=== PATIENT | female | born 1985 | race Caucasian/White ===

== ENCOUNTER 2017-10-03 18:00 | Observation (INO) | payer OTHER ==
[~2017-10-03] VITALS: Ht 160 cm; Wt 62.6 kg
[2017-10-03] MEDS ORDERED: PREN-380 PO (18:23)
[2017-10-03] MEDS ORDERED: ONDANSETRON 4 MG/2 ML VIAL IVP PRN (18:25)
[2017-10-03] MEDS ORDERED: LACTATED RINGERS 1,000 ML IV SCH (18:25)
[2017-10-03 19:07] VITALS: BP 103/57
[2017-10-03 19:30] LABS: HEMOGLOBIN 10.9 g/dL (12.0-16.0); MEAN CORPUSCULAR HEMOGLOBIN 31 pg (27-31); MEAN CORPUSCULAR HGB CONC 33 g/dL (33-37); MEAN CORPUSCULAR VOLUME 93.4 fL (80-94); PLATELET COUNT (AUTO) 251 K/uL (140-450); RED BLOOD CELL COUNT(AUTO) 3.53 MIL/uL (4.20-5.40); RED CELL DISTRIBUTION WIDTH 13.3 % (11.6-13.7); WHITE BLOOD COUNT (AUTO) 21.9 K/uL (4.8-10.8)
[2017-10-03 19:42] LABS: ANION GAP 13.9 (8-16); CARBON DIOXIDE 23.3 mmol/L (21-32); CREATININE 0.7 mg/dL (0.6-1.3); POTASSIUM 3.2 mmol/L (3.5-5.1)
[2017-10-03 19:48] LABS: ALBUMIN 2.8 g/dL (3.4-5.0); TOTAL BILIRUBIN 0.7 mg/dL (0.0-1.0)
[2017-10-03 19:56] LABS: LYMPHOCYTES % (MANUAL) 3 % (20-46); MONOCYTES % (MANUAL) 1 % (5-12)
[2017-10-03] MEDS ORDERED: MORPHINE SULFATE 5 MG/ML VIAL IVP PRN (20:25)
[2017-10-03] MEDS ORDERED: KCL 20 MEQ/WATER INJ PREMIX 100 ML IV ONE (20:25)
[2017-10-03] MEDS ORDERED: POTASSIUM CHL 20 MEQ/ 1/2 NS 1,000 ML IV SCH (20:40)
[2017-10-03 21:37] LABS: APPEARANCE,URINE CLEAR (CLEAR); BILIRUBIN,URINE NEGATIVE (NEGATIVE); BLOOD, URINE 1+ (NEGATIVE); LEUKOCYTE ESTERASE ,URINE NEGATIVE (NEGATIVE); NITRITE, URINE NEGATIVE (NEGATIVE); PH,URINE 6.5 (5.0-9.0); UGLUCOSE NEGATIVE (NEGATIVE)
[2017-10-03 21:39] LABS: COLOR,URINE STRAW (YELLOW)
[2017-10-03 21:51] LABS: RBC,URINE 11-20 (MOD) /HPF (0-5); WBC,URINE 0-5 (RARE) /HPF (0-5)
[2017-10-03] MEDS ORDERED: POTASSIUM CHL 20MEQ/D5-NS 1,000 ML IV ONE (22:12)
[2017-10-03] MEDS ORDERED: POTASSIUM CHL 20MEQ/D5-NS 1,000 ML IV SCH (22:40)
[2017-10-04 06:41] LABS: BASOPHILS % (AUTO) 0.1 % (0.0-2.0); HEMATOCRIT 27.1 % (36-48); HEMOGLOBIN 9.1 g/dL (12.0-16.0); LYMPHOCYTES # (AUTO) 1.2 K/uL (2.5-16.5); LYMPHOCYTES % (AUTO) 6.1 % (20.5-51.1); MEAN CORPUSCULAR HEMOGLOBIN 31 pg (27-31); MEAN CORPUSCULAR HGB CONC 34 g/dL (33-37); MEAN CORPUSCULAR VOLUME 93.5 fL (80-94); MONOCYTES # (AUTO) 0.7 K/uL (0.8-1.0); MONOCYTES % (AUTO) 3.7 % (1.7-9.3); NEUTROPHILS # (AUTO) 17.4 K/uL (1.8-7.7); NEUTROPHILS % (AUTO) 90.1 % (42.2-75.2); PLATELET COUNT (AUTO) 211 K/uL (140-450); RED CELL DISTRIBUTION WIDTH 13.4 % (11.6-13.7); WHITE BLOOD COUNT (AUTO) 19.3 K/uL (4.8-10.8)
[2017-10-04 07:05] LABS: ALBUMIN 2.2 g/dL (3.4-5.0); ANION GAP 9.6 (8-16); CARBON DIOXIDE 24.8 mmol/L (21-32); CREATININE 0.6 mg/dL (0.6-1.3); POTASSIUM 3.4 mmol/L (3.5-5.1); TOTAL BILIRUBIN 0.5 mg/dL (0.0-1.0)
== END 2017-10-04 15:30 | disposition home or self-care (01) ==
LOC: MLD 18:00
PROVIDERS: ADMIT Obstetrics & Gynecology; ATTEND Obstetrics & Gynecology
DX: O26.893 Other specified pregnancy related conditions, third trimester (principal); R10.9 Unspecified abdominal pain; O99.89 Other specified diseases and conditions complicating pregnancy, childbirth and the puerperium; M54.9 Dorsalgia, unspecified; Z3A.29 29 weeks gestation of pregnancy
CPT/HCPCS: 36415; 76700; 76805; 76856; 80053; 81001; 82150; 83690; 85025; 96360; 96361; G0378; J3480; J7120; Q0092

== ENCOUNTER 2017-10-06 03:29 | Observation (INO) | payer OTHER ==
[~2017-10-06] VITALS: Ht 160 cm; Wt 60.3 kg
[~2017-10-06 03:29] MED LIST: PREN-380 PO
[2017-10-06 03:34] VITALS: BP 100/58
[2017-10-06] MEDS: LACTATED RINGERS 1,000 ML IV SCH ×3 (04:15→17:34)
[2017-10-06 06:05] LABS: BASOPHILS % (AUTO) 0.2 % (0.0-2.0); HEMATOCRIT 27.6 % (36-48); HEMOGLOBIN 9.4 g/dL (12.0-16.0); LYMPHOCYTES # (AUTO) 0.8 K/uL (2.5-16.5); LYMPHOCYTES % (AUTO) 4.9 % (20.5-51.1); MEAN CORPUSCULAR HEMOGLOBIN 32 pg (27-31); MEAN CORPUSCULAR HGB CONC 34 g/dL (33-37); MEAN CORPUSCULAR VOLUME 92.5 fL (80-94); MONOCYTES % (AUTO) 6.2 % (1.7-9.3); NEUTROPHILS # (AUTO) 14.7 K/uL (1.8-7.7); NEUTROPHILS % (AUTO) 88.7 % (42.2-75.2); PLATELET COUNT (AUTO) 217 K/uL (140-450); RED BLOOD CELL COUNT(AUTO) 2.98 MIL/uL (4.20-5.40); RED CELL DISTRIBUTION WIDTH 13.2 % (11.6-13.7); WHITE BLOOD COUNT (AUTO) 16.6 K/uL (4.8-10.8)
[2017-10-06 06:33] LABS: ALBUMIN 2.3 g/dL (3.4-5.0); ANION GAP 15.3 (8-16); CARBON DIOXIDE 20.9 mmol/L (21-32); CREATININE 0.6 mg/dL (0.6-1.3); POTASSIUM 3.2 mmol/L (3.5-5.1); TOTAL BILIRUBIN 0.4 mg/dL (0.0-1.0)
[2017-10-06 06:53] LABS: BILIRUBIN,URINE NEGATIVE (NEGATIVE); LEUKOCYTE ESTERASE ,URINE 1+ (NEGATIVE); NITRITE, URINE NEGATIVE (NEGATIVE); PH,URINE 6.5 (5.0-9.0); UGLUCOSE NEGATIVE (NEGATIVE)
[2017-10-06 06:56] LABS: COLOR,URINE YELLOW (YELLOW)
[2017-10-06 06:57] LABS: APPEARANCE,URINE HAZY (CLEAR)
[2017-10-06 07:05] LABS: BLOOD, URINE 1+ (NEGATIVE); RBC,URINE 0-5 (RARE) /HPF (0-5)
[2017-10-06 07:39] VITALS: BP 98/51
[2017-10-06 08:46] LABS: BILIRUBIN,URINE 1+ (NEGATIVE); BLOOD, URINE 1+ (NEGATIVE); LEUKOCYTE ESTERASE ,URINE NEGATIVE (NEGATIVE); NITRITE, URINE NEGATIVE (NEGATIVE); PH,URINE 6.5 (5.0-9.0); UGLUCOSE NEGATIVE (NEGATIVE)
[2017-10-06 08:50] LABS: APPEARANCE,URINE SLIGHTLY HAZY (CLEAR); COLOR,URINE YELLOW (YELLOW)
[2017-10-06 09:11] LABS: RBC,URINE 0-5 (RARE) /HPF (0-5); WBC,URINE 0-5 (RARE) /HPF (0-5)
--- NOTE | 2017-10-06 09:59 | NUR ---
PATIENT HAS BEEN SCREENED AND CATEGORIZED LOW NUTRITION RISK. PATIENT WILL BE SEEN WITHIN 7 DAYS OF ADMISSION. 10/12/[address]
[2017-10-06 13:33] LABS: BASOPHILS % (AUTO) 0.1 % (0.0-2.0); EOSINOPHILS % (AUTO) 0.2 % (0.0-4.0); HEMATOCRIT 27.8 % (36-48); HEMOGLOBIN 9.4 g/dL (12.0-16.0); LYMPHOCYTES # (AUTO) 1.6 K/uL (2.5-16.5); LYMPHOCYTES % (AUTO) 9.3 % (20.5-51.1); MEAN CORPUSCULAR HEMOGLOBIN 31 pg (27-31); MEAN CORPUSCULAR HGB CONC 34 g/dL (33-37); MONOCYTES # (AUTO) 0.7 K/uL (0.8-1.0); MONOCYTES % (AUTO) 3.9 % (1.7-9.3); NEUTROPHILS % (AUTO) 86.5 % (42.2-75.2); PLATELET COUNT (AUTO) 223 K/uL (140-450); RED BLOOD CELL COUNT(AUTO) 2.99 MIL/uL (4.20-5.40); RED CELL DISTRIBUTION WIDTH 13.4 % (11.6-13.7); WHITE BLOOD COUNT (AUTO) 17.3 K/uL (4.8-10.8)
[2017-10-06] MEDS ORDERED: ACETAMINOPHEN 325 MG TAB PO PRN (14:35)
[2017-10-06] MEDS ORDERED: ACETAMINOPHEN 325 MG TAB ONE (14:37)
== END 2017-10-06 19:40 | disposition home or self-care (01) ==
LOC: MED 03:29 → MLD 03:45
PROVIDERS: ADMIT Obstetrics & Gynecology; ATTEND Obstetrics & Gynecology
DX: O21.2 Late vomiting of pregnancy (principal); O26.893 Other specified pregnancy related conditions, third trimester; R50.9 Fever, unspecified; Z3A.28 28 weeks gestation of pregnancy
CPT/HCPCS: 36415; 80053; 81001; 85025; 87086; 96360; 96361; G0378; J7120

== ENCOUNTER 2017-12-12 14:26 | Observation (INO) | payer OTHER ==
[~2017-12-12] VITALS: Ht 160 cm; Wt 66.2 kg
== END 2017-12-12 16:30 | disposition home or self-care (01) ==
LOC: MLD 14:26
PROVIDERS: ADMIT Obstetrics & Gynecology; ATTEND Obstetrics & Gynecology
DX: O62.9 Abnormality of forces of labor, unspecified (principal); Z3A.38 38 weeks gestation of pregnancy
CPT/HCPCS: 76815; G0378; Q0092

== ENCOUNTER 2017-12-19 13:35 | Inpatient (IN) | payer OTHER ==
[~2017-12-19] VITALS: Ht 160 cm; Wt 66.7 kg
[2017-12-19] MEDS ORDERED: FERR325E14 PO (13:54)
[2017-12-19] MEDS ORDERED: MISOPROSTOL 25 MCG TAB VG PRN (13:55)
[2017-12-19] MEDS ORDERED: CARBOPROST 250 MCG/ML AMP IM PRN (13:55)
[2017-12-19] MEDS ORDERED: METHYLERGONOVINE 0.2 MG/ML AMP IM PRN (13:55)
[2017-12-19] MEDS ORDERED: OXYTOCIN 20 UNITS in LACTATED RINGERS 1,000 ML IV SCH (13:55)
[2017-12-19] MEDS ORDERED: OXYTOCIN 10 UNITS/ML VIAL IM SCH (13:55)
[2017-12-19] MEDS ORDERED: AMPICILLIN 2,000 MG in NACL 0.9% MINI-BAG PLUS 100 ML IV SCH (13:55)
[2017-12-19 14:34] LABS: BASOPHILS % (AUTO) 0.3 % (0.0-2.0); EOSINOPHILS % (AUTO) 0.1 % (0.0-4.0); HEMATOCRIT 37.9 % (36-48); HEMOGLOBIN 12.2 g/dL (12.0-16.0); LYMPHOCYTES # (AUTO) 2.1 K/uL (2.5-16.5); LYMPHOCYTES % (AUTO) 20.1 % (20.5-51.1); MEAN CORPUSCULAR HEMOGLOBIN 30 pg (27-31); MEAN CORPUSCULAR HGB CONC 32 g/dL (33-37); MEAN CORPUSCULAR VOLUME 92.1 fL (80-94); MONOCYTES # (AUTO) 0.4 K/uL (0.8-1.0); MONOCYTES % (AUTO) 3.7 % (1.7-9.3); NEUTROPHILS # (AUTO) 7.9 K/uL (1.8-7.7); NEUTROPHILS % (AUTO) 75.8 % (42.2-75.2); PLATELET COUNT (AUTO) 242 K/uL (140-450); RED BLOOD CELL COUNT(AUTO) 4.11 MIL/uL (4.20-5.40); RED CELL DISTRIBUTION WIDTH 14.3 % (11.6-13.7); WHITE BLOOD COUNT (AUTO) 10.5 K/uL (4.8-10.8)
[2017-12-19] MEDS: LACTATED RINGERS 1,000 ML IV SCH ×2 (14:46→23:05)
[2017-12-19] MEDS ORDERED: AMPICILLIN 2,000 MG VIAL ONE (14:46)
[2017-12-19 14:57] LABS: ALBUMIN 2.9 g/dL (3.4-5.0); CREATININE 0.8 mg/dL (0.6-1.3); TOTAL BILIRUBIN 0.3 mg/dL (0.0-1.0)
[2017-12-19 14:58] LABS: APPEARANCE,URINE CLEAR (CLEAR); BILIRUBIN,URINE NEGATIVE (NEGATIVE); BLOOD, URINE NEGATIVE (NEGATIVE); LEUKOCYTE ESTERASE ,URINE NEGATIVE (NEGATIVE); NITRITE, URINE NEGATIVE (NEGATIVE); PH,URINE 6.5 (5.0-9.0); UGLUCOSE NEGATIVE (NEGATIVE)
[2017-12-19 15:13] LABS: COLOR,URINE STRAW (YELLOW)
[2017-12-19] MEDS ORDERED: AMPICILLIN 1,000 MG VIAL ONE ×2 (19:03→23:11)
[2017-12-19] MEDS: AMPICILLIN 1,000 MG in NACL 0.9% MINI-BAG PLUS 50 ML IV SCH ×2 (19:03→23:12)
[2017-12-19] MEDS ORDERED: MISOPROSTOL 25 MCG TAB ONE (19:52)
[2017-12-20] MEDS ORDERED: AMPICILLIN 1,000 MG VIAL ONE ×6 (02:25→22:45)
[2017-12-20] MEDS: AMPICILLIN 1,000 MG in NACL 0.9% MINI-BAG PLUS 50 ML IV SCH ×6 (02:39→22:59)
[2017-12-20] MEDS ORDERED: OXYTOCIN 10 UNITS/ML VIAL ONE (03:30)
[2017-12-20] MEDS ORDERED: PROMETHAZINE 25 MG/ML VIAL ONE (06:59)
[2017-12-20] MEDS ORDERED: NALBUPHINE 10 MG/ML AMP ONE (06:59)
[2017-12-20] MEDS: NALBUPHINE 10 MG/ML AMP IVP PRN (07:02)
[2017-12-20] MEDS: PROMETHAZINE 25 MG/ML VIAL IVP PRN (07:02)
[2017-12-20] MEDS ORDERED: ROPIVACAINE 0.2%/NS PREMIX 250 ML EPI ONE ×2 (07:51→18:43)
[2017-12-20] MEDS ORDERED: ROPIVACAINE 0.2%/NS PREMIX 250 ML EPI SCH (09:25)
[2017-12-20] MEDS: LACTATED RINGERS 1,000 ML IV SCH ×2 (10:55→21:25)
[2017-12-21] MEDS ORDERED: AMPICILLIN 1,000 MG VIAL ONE ×4 (02:29→15:28)
[2017-12-21] MEDS: AMPICILLIN 1,000 MG in NACL 0.9% MINI-BAG PLUS 50 ML IV SCH ×4 (02:59→15:28)
[2017-12-21] MEDS ORDERED: ROPIVACAINE 0.2%/NS PREMIX 250 ML EPI ONE (07:08)
[2017-12-21] MEDS ORDERED: OXYTOCIN 20 UNITS/LR PREMIX 0 ML IV ONE (11:06)
[2017-12-21] MEDS ORDERED: PROMETHAZINE 25 MG/ML VIAL ONE (14:06)
[2017-12-21] MEDS ORDERED: NALBUPHINE 10 MG/ML AMP ONE (14:06)
[2017-12-21] MEDS: NALBUPHINE 10 MG/ML AMP IVP PRN (14:10)
[2017-12-21] MEDS: PROMETHAZINE 25 MG/ML VIAL IVP PRN (14:11)
[2017-12-21] MEDS ORDERED: OXYTOCIN 10 UNITS/ML VIAL ONE (14:52)
[2017-12-21] MEDS ORDERED: LIDOCAINE 2% 1000 MG/50 ML VIAL INJ ONE (14:52)
[2017-12-21] MEDS: LACTATED RINGERS 1,000 ML IV SCH (14:56)
[2017-12-21] MEDS ORDERED: METHYLERGONOVINE 0.2 MG/ML AMP ONE (18:00)
[2017-12-21] MEDS ORDERED: LABETALOL 100 MG/20 ML VIAL IVP SCH (18:20)
[2017-12-21] MEDS ORDERED: OXYTOCIN 20 UNITS in LACTATED RINGERS 1,000 ML IV SCH (18:24)
[2017-12-21] MEDS ORDERED: LABETALOL 100 MG/20 ML VIAL IV STA (18:24)
[2017-12-21] MEDS ORDERED: LABETALOL 100 MG/20 ML VIAL ONE (18:25)
[2017-12-21] MEDS ORDERED: MEASLES, MUMPS, AND RUBELLA 1 VIAL SQVAC PRN (18:25)
[2017-12-21] MEDS ORDERED: oxyCODONE/APAP 5/325 MG 1 TAB TAB PO PRN (18:25)
[2017-12-21] MEDS ORDERED: IBUPROFEN 600 MG TAB PO PRN (18:25)
[2017-12-21] MEDS ORDERED: oxyCODONE/APAP 5/325 MG 1 TAB TAB ONE (19:15)
[2017-12-22 07:11] LABS: BASOPHILS % (AUTO) 0.2 % (0.0-2.0); EOSINOPHILS % (AUTO) 0.1 % (0.0-4.0); HEMATOCRIT 34.1 % (36-48); LYMPHOCYTES # (AUTO) 3.4 K/uL (2.5-16.5); LYMPHOCYTES % (AUTO) 20.1 % (20.5-51.1); MEAN CORPUSCULAR HEMOGLOBIN 30 pg (27-31); MEAN CORPUSCULAR HGB CONC 32 g/dL (33-37); MEAN CORPUSCULAR VOLUME 92.5 fL (80-94); MONOCYTES # (AUTO) 0.9 K/uL (0.8-1.0); NEUTROPHILS # (AUTO) 12.8 K/uL (1.8-7.7); NEUTROPHILS % (AUTO) 74.6 % (42.2-75.2); PLATELET COUNT (AUTO) 192 K/uL (140-450); RED BLOOD CELL COUNT(AUTO) 3.69 MIL/uL (4.20-5.40); RED CELL DISTRIBUTION WIDTH 14.9 % (11.6-13.7); WHITE BLOOD COUNT (AUTO) 17.2 K/uL (4.8-10.8)
[2017-12-22] MEDS: ACETAMINOPHEN 325 MG TAB PO PRN (19:53)
[2017-12-23] MEDS: ACETAMINOPHEN 325 MG TAB PO PRN (02:11)
== END 2017-12-23 14:40 | disposition home or self-care (01) | DRG 560 ==
LOC: MFCC 13:35 → OBSVTOIN 13:35 → MFCC 14:13 → MLD 23:00 → MFCC 12-21 21:30
PROVIDERS: ADMIT Obstetrics & Gynecology; ATTEND Obstetrics & Gynecology
PROC: 10D07Z6 Extraction of Products of Conception, Vacuum, Via Natural or Artificial Opening (ICD-10-PCS; principal; 2017-12-21)
PROC: 10907ZC Drainage of Amniotic Fluid, Therapeutic from Products of Conception, Via Natural or Artificial Opening (ICD-10-PCS; 2017-12-21)
PROC: 3E0P7VZ Introduction of Hormone into Female Reproductive, Via Natural or Artificial Opening (ICD-10-PCS; 2017-12-21)
PROC: 3E033VJ Introduction of Other Hormone into Peripheral Vein, Percutaneous Approach (ICD-10-PCS; 2017-12-21)
PROC: 00HU33Z Insertion of Infusion Device into Spinal Canal, Percutaneous Approach (ICD-10-PCS; 2017-12-21)
PROC: 3E0R3BZ Introduction of Anesthetic Agent into Spinal Canal, Percutaneous Approach (ICD-10-PCS; 2017-12-21)
PROC: 3E0234Z Introduction of Serum, Toxoid and Vaccine into Muscle, Percutaneous Approach (ICD-10-PCS; 2017-12-22)
DX: O16.4 Unspecified maternal hypertension, complicating childbirth (principal); O99.824 Streptococcus B carrier state complicating childbirth; Z23 Encounter for immunization; Z83.3 Family history of diabetes mellitus; Z37.0 Single live birth; Z3A.39 39 weeks gestation of pregnancy; Z83.79 Family history of other diseases of the digestive system; Z84.1 Family history of disorders of kidney and ureter
CPT/HCPCS: 36415; 51702; 59200; 59409; 76815; 80053; 81003; 85025; 86592; 86886; 86900; 86901; 90715; J0290; J2001; J2210; J2300; J2550; J2590; J2795; J3490; J7120; Q0092